=== PATIENT | female | born 1980 | race Hispanic/Latino ===

== ENCOUNTER 2021-08-09 13:29 | Emergency (ER) | payer SELFPAY ==
[2021-08-09 13:46] VITALS: BP 103/66; PULSE 77; RESP 18; TEMP 36.9; O2SAT 99
--- NOTE | 2021-08-09 14:04 | ED.FEMALEGU ---
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 Has had a new sexual partner. States she has been scratching herself she now thinks that she has skin infection. Currently on menses. Patient states it wagner when she urinates. Phone, patient declined wanted to use her friend Related Data Allergies Allergy/AdvReac Type Severity Reaction Status Date / Time No Known Allergies Allergy Verified 08/09/21 14:31 Review of Systems Review of Systems: All systems reviewed & are unremarkable except as noted in HPI and below Constitutional: Constitutional: Reports no additional constitutional complaints, Denies chills and Denies fatigue Eyes: Eyes: Reports no additional eye complaints ENT: Reports system reviewed and no additional complaints, except as documented Cardiovascular: Cardiovascular: Reports no additional cardiovascular complaints Respiratory: Respiratory: Reports no additional respiratory complaints Gastrointestinal: Gastrointestinal: Reports no additional gastrointestinal complaints, Denies abdominal pain, Denies diarrhea, Denies nausea and Denies vomiting Genitourinary: Genitourinary: Reports as per HPI, Reports hematuria, Reports nocturia, Reports genital lesions, Reports dysuria, Denies flank pain and Reports vaginal discharge Musculoskeletal: Musculoskeletal: Reports no additional musculoskeletal complaints and Denies back pain Integumentary/Breasts: Skin/Breast: Reports system reviewed and no additional complaints, except as docu Neurologic: Reports system reviewed and no additional complaints, except as documented Psychiatric: Psychiatric: Reports no additional psychiatric complaints Endocrine: Endocrine: Denies fatigue Allergic/Immunologic: Allergic/Immunologic: Reports no additional allergic/immunologic complaints [facility] Past Medical History Medical History (Updated 08/09/21 @ 19:42 by Kaylah Roberts APRN) No significant medical problems Surgical History Surgical History (Updated 08/09/21 @ 19:42 by Kaylah Roberts APRN) No history of previous surgery Social History Social History (Updated 08/09/21 @ 19:43 by Kaylah Roberts APRN) Gender identity (if verbalized by the patient): Female Comments At the time of my signature, I reviewed and agree with the nursing past medical, surgical, social, and family history. There is no relevant family history pertinent to the patient complaint. Exam Const: General: healthy appearing, no acute distress and alert Nutritional Appearance: well nourished Orientation/consciousness: patient oriented x3 Limitations: no limitations HENMT: Head: normal to inspection Ears: external ears normal Eyes: Conjunctivae: conjunctivae normal Pupils: Equal, round and reactive pupils present Neck: Neck: normal visual inspection, no lymphadenopathy and no meningeal signs Chest: Chest palpation & inspection: normal inspection of the chest and abnormal inspection of the chest Resp: Effort & Inspection: normal respiratory effort Auscultation: clear to auscultation bilaterally Cardio: Rate: regular rate Rhythm: regular rhythm GI: GI Palp: Yes Soft to palpation and No Tenderness to palpation present (GI) : General: Yes no CVA tenderness External Female Exam: erythema (right labia), externally tender, external swelling, lesion (right labia), No laceration and No External ecchymosis (female) Speculum Exam - Cervix: normal appearance of the cervix, Cervical os closed and Abnormal cervical discharge present (Currently on menses) Other: Chaperoned by Pam TAYLOR Back/Spine/Pelvis: Back: no CVA tenderness Skin: Genera
[2021-08-09] MEDS: cefTRIAXone 500 MG, LIDOCAINE HCL 1% LOCAL INJ 1 ML IM (14:53)
== END 2021-08-09 15:15 | disposition home or self-care (01) ==
PROVIDERS: Emergency Provider Nurse Practitioner
DX: N89.8 Other specified noninflammatory disorders of vagina (principal); Z98.84 Bariatric surgery status
CPT/HCPCS: 81003; 87070; 87077; 87086; 87147; 87181; 87186; 87255; 87491; 87591; 87661; 96372; 99214; G0463; J0696